=== PATIENT | male | born 1975 | race African-American/Black ===

== ENCOUNTER 2020-01-11 10:27 | Emergency (ER) | payer MEDICAID, OTHER ==
[~2020-01-11] VITALS: Ht 170.2 cm; Wt 63.5 kg
[2020-01-11 11:43] LABS: Basophils # (auto) 0 10 ^3/uL (0-0.2); Basophils % (auto) 0.1 % (0.0-2.0); Eosinophils # (auto) 0.1 10 ^3/uL (0-0.8); Eosinophils % (auto) 0.4 % (0.0-7.0); Hematocrit 47.9 % (41.0-53.0); Hemoglobin 15.4 g/dL (13.5-17.5); Lymphocytes # (auto) 1.3 10 ^3/uL (0.4-5.4); Mean Corpuscular Hemoglobin 30.4 pg (28.0-32.0); Mean Corpuscular Hgb Conc. 32.1 g/dL (32.0-36.0); Mean Corpuscular Volume 94.6 fL (80.0-100.0); Monocytes # (auto) 2.2 10 ^3/uL (0-1.3); Neutrophils % (auto) 83.5 % (37.0-80.0); Platelet Count (auto) 231 10^3/uL (140-450); Red Blood Cells 5.07 10^6/uL (4.5-5.90); Red Cell Distribution Width 13.5 % (11.8-14.3); White Blood Cell 21.5 10^3/uL (4.4-10.8)
[2020-01-11 12:08] LABS: Albumin 3.5 g/dL (3.4-5.0); Calcium 8.8 mg/dL (8.5-10.1); Potassium 4.2 mmol/L (3.5-5.1)
[2020-01-11 12:12] LABS: BUN/Creatinine Ratio 13.4; Bilirubin, Total 1.8 mg/dL (0.2-1.0); Total Protein 8.8 g/dL (6.4-8.2)
[2020-01-11] MEDS ORDERED: SODIUM CHLORIDE 0.9% 2,000 ML IV ONE (12:30)
[2020-01-11 15:29] LABS: Urine Bacteria NONE SEEN /hpf (None Seen); Urine Blood 1+ /uL (Negative); Urine Mucus FEW (None Seen); Urine Sperm PRESENT /hpf (None Seen); Urine WBC 11 /hpf (0 - 3)
[2020-01-11] MEDS ORDERED: cefTRIAXone 1GM/50ML D5W 50 ML IV ONE (15:45)
[2020-01-11] MEDS ORDERED: ACETAMINOPHEN 650 mg PER 20 mL UD PO ONE (16:15)
[2020-01-11 16:55] VITALS: BP 130/87
[2020-01-11] MEDS ORDERED: SODIUM CHLORIDE 0.9% 1,000 ML IV ONE (17:00)
== END 2020-01-11 17:39 | disposition home or self-care (01) ==
LOC: ER 10:27
DX: T67.5XXA Heat exhaustion, unspecified, initial encounter (principal); J02.0 Streptococcal pharyngitis; I10 Essential (primary) hypertension; N39.0 Urinary tract infection, site not specified; X58.XXXA Exposure to other specified factors, initial encounter; Y93.89 Activity, other specified; Y92.89 Other specified places as the place of occurrence of the external cause; Y99.8 Other external cause status
CPT/HCPCS: 36415; 71046; 80053; 81001; 85025; 87880; 96361; 96365; 99284; J0696; J7030